=== PATIENT | female | born 1940 | race Caucasian/White ===

== ENCOUNTER 2018-09-07 04:16 | Emergency (ER) | payer MEDICAID ==
[~2018-09-07] VITALS: Ht 157.5 cm; Wt 82.6 kg
[2018-09-07 07:44] VITALS: BP 164/93
== END 2018-09-07 08:12 | disposition home or self-care (01) ==
LOC: ER 04:16
DX: S42.291A Other displaced fracture of upper end of right humerus, initial encounter for closed fracture (principal); S60.221A Contusion of right hand, initial encounter; S00.33XA Contusion of nose, initial encounter; W18.39XA Other fall on same level, initial encounter; Y93.89 Activity, other specified; Y99.8 Other external cause status; Y92.89 Other specified places as the place of occurrence of the external cause
CPT/HCPCS: 70486; 73030; 73060; 73130